=== PATIENT | male | born 1990 | race Caucasian/White ===

== ENCOUNTER 2017-10-10 08:05 | Day surgery (SDC) | payer OTHER ==
[~2017-10-10 08:05] MED LIST: CEFAZOLIN 1 GM INJ; ROCURONIUM 50 MG INJ
[2017-10-10] MEDS ORDERED: POLYMYXIN/BACITRACIN 1L IRRIG (10:05)
[2017-10-10] MEDS ORDERED: OXYCODONE/ACETAMINOPHEN (5/325) TAB PO ×2 (10:30→12:30)
[2017-10-10] MEDS ORDERED: morphine 2 MG INJ IV (10:30)
[2017-10-10] MEDS ORDERED: MIDAZOLAM 1 MG/ML 2 ML INJ (10:55)
[2017-10-10] MEDS ORDERED: FENTAnyl 50 MCG/ML VIAL (10:56)
[2017-10-10] MEDS ORDERED: BUPIVACAINE 0.25%/EPI (SDV) 30 ML INJ (11:16)
[2017-10-10] MEDS: BUPIVACAINE LIPOSOME/PF 266 MG/20 ML VIAL INFIL (11:45)
[2017-10-10] MEDS ORDERED: FAMOTIDINE 20 MG INJ (11:56)
[2017-10-10] MEDS ORDERED: ONDANSETRON 4 MG INJ (11:56)
[2017-10-10] MEDS ORDERED: SUGAMMADEX SODIUM 200 MG/2 ML VIAL IV (11:56)
[2017-10-10] MEDS ORDERED: HYDROmorphONE (0.2 MG/ML) 10ML SYG IV (12:17)
[2017-10-10] MEDS: BUPIVACAINE 0.5%/EPI (SDV) 30 ML INJ INJ (12:17)
[2017-10-10] MEDS: ONDANSETRON 4 MG INJ IV (12:22)
[2017-10-10] MEDS ORDERED: ACETAMINOPHEN 1000MG/100ML IV 100 ML IVPB (12:30)
[2017-10-10] MEDS ORDERED: FENTAnyl 50 MCG/ML VIAL IV (12:30)
[2017-10-10] MEDS ORDERED: ONDANSETRON 4 MG INJ IV (12:30)
[2017-10-10] MEDS: HYDROmorphONE (0.2 MG/ML) 10ML SYG IV (12:31)
[2017-10-10] MEDS ORDERED: hydrALAzine 20 MG INJ (12:35)
[2017-10-10] MEDS: hydrALAzine 20 MG INJ IV (12:50)
== END 2017-10-10 14:15 | disposition home or self-care (01) ==
LOC: SDS 08:05
DX: L89.159 Pressure ulcer of sacral region, unspecified stage (principal); G82.20 Paraplegia, unspecified; E11.9 Type 2 diabetes mellitus without complications
CPT/HCPCS: 27080; 82962; 87070; 87075; 88305